=== PATIENT | male | born 1955 | race Caucasian/White ===

== ENCOUNTER → 2018-02-01 16:25 | Outpatient (CLI) | payer OTHER, SELFPAY ==
--- NOTE | 2018-02-01 | DI.RAD.S_ITS ---
PROCEDURE: XR SHOULDER RT MIN 2V INDICATIONS: Right SHOULDER PAIN TECHNIQUE: 3 views of the shoulder were acquired. COMPARISON: None. FINDINGS: Bones: No fractures or dislocations. No suspicious bony lesions. Visualized ribs appear intact. Soft tissues: No suspicious soft tissue calcifications. IMPRESSION: No trauma found. Dictated by: Todd Diaz M.D. on 02/01/2018 at 17:01 Approved by: Todd Diaz M.D. on 02/01/2018 at 17:01
== END ==
PROVIDERS: Visit Provider Family Medicine
DX: M25.511 Pain in right shoulder (principal)
CPT/HCPCS: 73030

== ENCOUNTER → 2023-09-29 09:43 | Outpatient (CLI) | payer MEDICARE, OTHER, SELFPAY ==
--- NOTE | 2023-09-30 02:30 | DI.NM.S_ITS ---
DATE OF SERVICE: 09/29/2023 PROCEDURE: Exercise perfusion study. INDICATIONS: Chest pain, hypertension, abnormal EKG. RADIOPHARMACEUTICAL: 27.5 millicurie technetium-99m Myoview IV was injected at stress and 8.5 millicurie technetium-99m Myoview IV was injected at rest. One-day protocol was done. CARDIAC STRESS: The patient underwent exercise stress test under the supervision of an attending staff. The patient walked on Taz protocol for 9 minutes and 36 seconds, achieved maximum heart rate of 142, which was 94% of target heart rate. Resting blood pressure 142/100 and peak blood pressure 202/102 mmHg. Achieved JAIRO of -32% and 10.1 METs of workload. Baseline rhythm was sinus with some PVCs. Also had first- degree AV block. During stress, no convincing ischemic changes seen. The patient has intermittent PVCs and occasional couplets without any ventricular tachycardia. No anginal symptoms. The patient felt some fatigue and dyspnea during exercise. RAW DATA: There is increased subdiaphragmatic activity. GATED STUDY: Stress LV ejection fraction 70% without any obvious wall motion abnormalities. TID ratio 0.88, which is within normal limits. Stress end-diastolic volume 88 mL which is within normal limits. Lung/heart ratio 0.24, which is within normal limits. MYOCARDIAL PERFUSION SCAN: Stress supine, resting supine, and stress prone images were compared to each other. Stress supine and resting supine images revealed moderate-size moderately decreased perfusion of inferior wall which got completely resolved during stress prone images suggestive of tissue attenuation artifact. No convincing ischemia or infarction pattern seen. CONCLUSION: This is a normal myocardial perfusion study with evidence of diaphragmatic tissue attenuation artifact, which got resolved during stress prone images. Excellent exercise tolerance. JAIRO -32%. Baseline hypertensive with resting blood pressure 142/100 and peak blood pressure 202/102 mmHg. Baseline, some isolated PVCs. During stress at peak, no worsening of PVCs. The patient had some ventricular couplets without any ventricular tachycardia. No ischemic electrocardiographic changes. No chest pain. Preserved left ventricular function. Overall, low-risk exercise perfusion study. Gigi Teague - Sanjuanita/curry doc#: [id number]/job#: [id number] dd: 09/29/2023 16:49:00 dt: 09/30/2023 02:24:00 DICTATING MD/COPIES TO: Josias Flannery MD COPIES MNE: LEX;
== END ==
PROVIDERS: PCP Nurse Practitioner Family; Referring Provider Nurse Practitioner Family; Visit Provider Nurse Practitioner Family
DX: R94.31 Abnormal electrocardiogram [ECG] [EKG] (principal); R07.9 Chest pain, unspecified; I10 Essential (primary) hypertension
CPT/HCPCS: 78452; 93017; A9502

== ENCOUNTER → 2025-04-05 10:42 | Outpatient (CLI) | payer MEDICARE, OTHER, SELFPAY | LOC: PHYS 10:44 | PROVIDERS: Family Provider Nurse Practitioner Family; PCP Nurse Practitioner Family; Referring Provider Orthopaedic Surgery; Visit Provider Orthopaedic Surgery | DX: M54.12 Radiculopathy, cervical region (principal) | CPT/HCPCS: 95886; 95909 ==

== ENCOUNTER → 2025-07-04 09:53 | Outpatient (CLI) | payer MEDICARE, OTHER, SELFPAY ==
--- NOTE | 2025-07-04 09:55 | DI.RAD.S_ITS ---
PROCEDURE: XR CERVICAL SPINE 4V OR 5V
== END ==
PROVIDERS: Family Provider Nurse Practitioner Family; PCP Nurse Practitioner Family; Referring Provider Physical Medicine & Rehabilitation; Visit Provider Physical Medicine & Rehabilitation
DX: M47.812 Spondylosis without myelopathy or radiculopathy, cervical region (principal); M48.02 Spinal stenosis, cervical region; M54.2 Cervicalgia
CPT/HCPCS: 72050